=== PATIENT | male | born 1985 | race Two or more races ===

== ENCOUNTER 2020-07-20 08:49 | Emergency (ER) | payer SELFPAY ==
[~2020-07-20] VITALS: Ht 170.2 cm; Wt 99.8 kg
--- NOTE | 2020-07-20 08:49 | NUR ---
PT BIBRA FROM THE STREET C/O FENTANYL OD. NARCAN 2MG GIVEN SKIN THERAPIST. PT IS AAOX3, NOT IN RESPIRATORY DISTRESS, HOOKED TO LINE CONSTRUCTION SUPERVISOR, KEPT RESTED AND COMFORTABLE. WILL CONTINUE TO MONITOR.
--- NOTE | 2020-07-20 08:53 | NUR ---
PT SEEN AND EXAMINED BY
[2020-07-20] MEDS ORDERED: ONDANSETRON HCL/PF 4 MG/2 ML VIAL ONE (09:00)
[2020-07-20] MEDS: IV NS 0.9% 1,000 ML BAG IV ONE (09:05)
[2020-07-20] MEDS: ONDANSETRON HCL/PF 4 MG/2 ML VIAL IVP ONE (09:05)
--- NOTE | 2020-07-20 09:06 | NUR ---
BLOOD DRAWN AND SENT TO LAB.
[2020-07-20] MEDS ORDERED: NALOXONE PREFILLED SYRINGE 2 MG/2 ML SYRINGE ONE ×2 (09:09→14:28)
[2020-07-20] MEDS: NALOXONE HCL 0.4 MG/ML AMPUL IV ONE ×2 (09:13→14:30)
--- NOTE | 2020-07-20 09:13 | NUR ---
RIDING DOUBLE AT BEDSIDE FOR XRAY.
[2020-07-20 09:22] LABS: BASOPHILS % (AUTO) 0.2 % (0.0-2.0); EOSINOPHILS % (AUTO) 1.2 % (0.0-6.0); HEMATOCRIT 39 % (39-51); HEMOGLOBIN 13.3 g/dL (13.5-17.5); LYMPHOCYTES # (AUTO) 0.8 /CMM (0.8-4.8); LYMPHOCYTES % (AUTO) 11.2 % (20.0-44.0); MEAN CORPUSCULAR HGB CONC 34 g/dl (31.0-36.0); MEAN CORPUSCULAR VOLUME 91 fL (80-96); MONOCYTES # (AUTO) 0.5 /CMM (0.1-1.30); MONOCYTES % (AUTO) 6.4 % (2.0-12.0); NEUTROPHILS # (AUTO) 6.1 /CMM (1.8-8.9); PLATELET COUNT (AUTO) 224 /CMM (150-450); WHITE BLOOD COUNT (AUTO) 7.5 K/uL (4.3-11.0)
[2020-07-20 10:45] LABS: CALCIUM, SERUM 8.4 mg/dL (8.5-10.1); CARBON DIOXIDE 22 mmol/L (21-32); CHLORIDE 102 mmol/L (98-107); CREATININE 1.1 mg/dL (0.6-1.3); GLUCOSE 163 mg/dL (74-106); POTASSIUM 3.4 mmol/L (3.5-5.1); SODIUM SERUM 137 mmol/L (136-145); UREA NITROGEN, BLOOD 23 mg/dL (7-18)
[2020-07-20 10:50] LABS: ALANINE AMINOTRANSFERASE 66 U/L (12-78); ALBUMIN 3.4 g/dL (3.4-5.0); ALKALINE PHOSPHATASE 68 U/L (46-116); ASPARTATE AMINOTRANSFERASE 78 U/L (15-37); BILIRUBIN,DIRECT 0.3 mg/dL (0.0-0.2); BILIRUBIN,TOTAL 0.9 mg/dL (0.2-1.0); TOTAL PROTEIN, SERUM 6.6 g/dL (6.4-8.2)
[2020-07-20 10:51] LABS: ACETAMINOPHEN 0 ug/ml (10-30)
[2020-07-20 10:52] LABS: ALCOHOL, BLOOD < 3 mg/dL (0-0)
[2020-07-20 11:06] LABS: MAGNESIUM 2.1 mg/dL (1.8-2.4)
[2020-07-20] MEDS ORDERED: NALO4SPR NS (13:36)
[2020-07-20 14:18] LABS: BILIRUBIN,URINE SMALL (NEGATIVE); COLOR,URINE YELLOW (YELLOW); LEUKOCYTE ESTERASE ,URINE NEGATIVE (NEGATIVE); NITRITE, URINE NEGATIVE (NEGATIVE); PROTEIN,URINE 30 mg/dl (NEGATIVE); UGLUCOSE NEGATIVE (NEGATIVE)
--- NOTE | 2020-07-20 14:32 | NUR ---
Social Service Consult: SW consult request by ER staff for a 34 year old male. SW met with pt at ER bed 9 at 1430 pm to do an assessment SW is unable to interview due to behavior issues. Pt toxicology is still pending. Per EMR note " PT BIBRA FROM THE STREET C/O FENTANYL OD. NARCAN 2MG GIVEN EDUCATION PROFESSIONAL". Pt is non compliant and refuse to answer questions. BRYAN spoke to RN (Mina) to contact bilingual social worker once the patient is ready to do an assessment. Plan: SW will follow up with the patient is agreeable to participate in interview and assessment.
--- NOTE | 2020-07-20 14:51 | NUR ---
Patient given written and verbal discharge instructions. Patient verbalizes understanding of instructions. Patient is ambulatory with steady gait. Refuses offer of group home placement. Patient given list of available shelters in surrounding area.
[2020-07-20 15:03] LABS: BACTERIA,URINE 1+ /HPF (None Seen); MUCUS,URINE Few /LPF (None Seen); SQUAMOUS EPITHELIAL CELL,UR 0-2 /HPF (None Seen)
[2020-07-20 15:04] LABS: FINE GRANULAR CASTS,URINE Few /LPF (None Seen); HYALINE CASTS, URINE Few /LPF (None Seen); SPERM,URINE Few /HPF (None Seen)
--- NOTE | 2020-07-20 15:23 | NUR ---
IV removed. Catheter intact and site benign. Pressure and 4x4 applied to site. No bleeding noted. Patient given written and verbal discharge instructions. Patient verbalizes understanding of instructions. Patient is ambulatory with steady gait. Refuses offer of long-term placement. Patient given list of available shelters in surrounding area.
[2020-07-20 15:24] VITALS: BP 135/88
== END 2020-07-20 15:24 | disposition left against medical advice (07) ==
LOC: ER 08:50
DX: T40.411A Poisoning by fentanyl or fentanyl analogs, accidental (unintentional), initial encounter (principal); R06.81 Apnea, not elsewhere classified; R94.31 Abnormal electrocardiogram [ECG] [EKG]; Y92.89 Other specified places as the place of occurrence of the external cause
CPT/HCPCS: 36415; 71045; 80048; 80076; 80299; 80307; 80320; 81001; 83735; 84484; 85025; 93005; 96361; 96374; 96375; 96376; 99285; J2310 ×2; J2405; 87081-TC; G0480